=== PATIENT | female | born 1950 | race Caucasian/White ===

== ENCOUNTER 2018-06-01 06:53 | Day surgery (SDC) | payer OTHER, MEDICARE ==
--- NOTE | 2018-05-31 13:50 | RAD REPORT ---
EXAM DESCRIPTION: Dev Vincent (2 Views)05/31/2018 1:38 pm CLINICAL HISTORY: Coronary artery disease/preop exam COMPARISON: 2016 FINDINGS: The lungs appear clear of acute infiltrate. The heart is normal size IMPRESSION: No acute abnormalities displayed
[2018-05-31 13:53] LABS: Absolute Lymphocytes (CBC) 2.1 K/uL (0.7-4.9); Absolute Monocytes 0.3 K/uL (0.1-1.3); Absolute Neutrophil 3.5 K/uL (1.8-8.0); Basophils % 0.6 % (0-1.3); Eosinophils % 2.1 % (0-4.4); Hematocrit 43.3 % (36.0-45.0); Lymphocytes % 34.8 % (15.3-44.8); MPV 8.6 fL (7.6-11.3); Monocytes % 4.9 % (3.3-12.3); RBC Red Blood Cell Count 4.92 M/uL (3.86-4.86)
[2018-05-31 13:57] LABS: Protime INR 1.06
[2018-05-31 14:01] LABS: Potassium 4.1 mmol/L (3.5-5.1)
[2018-06-01] MEDS ORDERED: LIDOCAINE 1% MPF 5 ML VIAL ONE (07:11)
[2018-06-01] MEDS ORDERED: HEPA 1000U/500MLS 2,000 UNIT/1,000 ML BAG IV ONE (07:11)
[2018-06-01] MEDS ORDERED: NA CHLORIDE 0.9% 500 ML ONE (07:21)
[2018-06-01] MEDS ORDERED: MIDAZOLAM HCL 2 MG/2 ML INJ ONE ×2 (07:48→08:20)
[2018-06-01] MEDS ORDERED: FENTANYL CITR 100 MCG/2 ML ONE (07:49)
[2018-06-01] MEDS ORDERED: HEPARIN 5000 UNIT/ML 1 ML VIAL ONE (08:25)
[2018-06-01] MEDS ORDERED: NICARDIPINE HCL 25 MG/10 ML IV ONE (08:25)
[2018-06-01] MEDS ORDERED: NITROGLYCERIN 100 MCG/ML SYR (for cath lab use only) IV ONE (08:25)
[2018-06-01] MEDS ORDERED: NITROGLYCERIN/D5W 25 MG/250 ML BTL IV ONE (08:25)
[2018-06-01] MEDS ORDERED: HYDRALAZINE HCL 20 MG/ML VIAL ONE (08:43)
[2018-06-01 09:57] VITALS: O2SAT 97
[2018-06-01 11:37] VITALS: TEMP 97
[2018-06-01 11:39] VITALS: BP 114/63
--- NOTE | 2018-06-01 19:36 | OP ---
Surgeon: Aristeo Guevara MD Additional Attending Physician: Oniel Ritter M.D. Procedures: Left heart catheterization, coronary left ventricular angiography. Findings: The patient has mild CAD. No stenosis more than 40%. The RCA stent placed several years ago is widely patent. There is no evidence of any lesion that would cause any ischemia. Her left ve ntricular ejection fraction is normal. Left ventricular end-diastolic pressure was normal at 5, but the systolic blood pressure is elevated at 185, so she has systolic hypertension, and in the final an alysis, she is low risk for going through general anesthesia and hip joint replacement surgery withou t any further cardiac testing. Procedure In Detail: The patient was brought to the cardiac supervisor labor gang in a fasting state, sedated wit h Versed and fentanyl. Prepared and draped in usual sterile fashion. Right radial approach was used . Tissues around the right radial artery were anesthetized using 1% lidocaine. The artery was enter ed using a 21-gauge needle, cannulated with a 0.021 inch diameter guidewire. This was then used to p lace a 6-Occitan Terumo radial sheath. The sheath was flushed, radial cocktail was given consisting o f nicardipine, heparin, nitroglycerin. We guided a TIG catheter into the ascending aorta using a Gli dewire and fluoroscopy. The TIG catheter was used to angiogram right coronary, left coronary, and le ft ventricle. At the end of the procedure, the catheter was straightened out using a J-wire and the catheter and wire were withdrawn. Sheath was flushed, removed, and the arteriotomy was closed using TR band. Complications From The Procedure: None. Estimated Blood Loss: 5 cc. Maintainability Engineer: Jose Andrew. HARMEET/LESLIE Voice ID: [id number] Report ID: [id number]
== END 2018-06-01 11:25 | disposition home health service (06) ==
LOC: CCL 06:53
PROVIDERS: ATTEND Internal Medicine
DX: R94.39 Abnormal result of other cardiovascular function study (principal); I25.10 Atherosclerotic heart disease of native coronary artery without angina pectoris; I10 Essential (primary) hypertension; E78.2 Mixed hyperlipidemia; E11.9 Type 2 diabetes mellitus without complications; Z95.5 Presence of coronary angioplasty implant and graft; Z91.048 Other nonmedicinal substance allergy status
CPT/HCPCS: 36415; 71046; 80048; 82962 ×2; 85025; 85610; 85730; 93458; C1893; J0360; J1644; J2250 ×2; J3010

== ENCOUNTER 2019-11-18 16:47 | Emergency (ER) | payer OTHER, MEDICARE ==
--- OUTSIDE RECORDS SUMMARY | 2019-11-18 16:50 | XMS REPORT | Continuity of Care Document ---
:[address] [facility] t Address [address] [place] [address] Care Team Providers Name Role Phone Unavailable Unavailable Unavailable Payers Payer Name Policy Type Policy Number Effective Date Expiration Date S ource Problems This patient has no known problems. Allergies, Adverse Reactions, Alerts Allergy Allergy Status Severity Reaction(s) Onset Inactive Treating Comm ents Source Name Type Date Date Clinician No Known DA Active U [facility] 06-13 [place] [facility] No Known DA Active U [facility] 09-09 [facility] [place] Medications This patient has no known medications. Procedures This patient has no known procedures. Results Test Description Test Time Test Comments Results Result Comments Source GLUBED 2018-06-15 11:44:00 Test Item Value Reference Range Interpretation Comme nts GLUBED (test code = GLUBED) 136 mg/dL 60-125 H - XR PELVIS 1/2 [id number] 10:02:00 Patient Name: REVA ROMAN Unit No: [id number] EXAMS: CPT CODE: [id number] XR PELVIS 1/2 VIEWS 10060 AP VIEW OF THE PELVIS. COMMENT: In progress total left hip arthroplasty. AP view the pelvis COMMENT: COMPARISON: No prior exams available. Completed total left hip arthroplasty. Prosthesis appears to be in good position. at 1002 Reported and signed by: Ting Rodríguez MD CC: Oniel Ritter MD; Pablo Tang MD Technologist: MUSA GARCIA (RT.R) Transcribed D/ (1002) [email or web address] [facility] NAME: REVA ROMAN [address] [place] [address] PHYS: Pablo Cavanaugh : 1950 AGE: 68 SEX: F [place], [place] [address] LOC: Y.301 A PHONE #: [phone] EXAM DATE: 06/14/2018 STATUS: DIS IN FAX #: [phone] RAD #: D/C DT 06/15/2018 PAGE 1 Signed Report Patient Name: REVA ROMAN EFREN Unit No: [id number] EXAMS: CPT CODE: [id number] XR PELVIS 1/2 VIEWS 55348 <Continued> Orig Print D/T: S: 06/17/2018 (1046) [facility] NAME: REVA ROMAN [address] [place] [address] PHYS: MATJAJA.Flora - Pablo Tang : 1950 AGE: 68 SEX: F [place], [place] [address] LOC: Y.301 A PHONE #: [phone] EXAM DATE: STATUS: DIS IN FAX #: [phone] RAD #: D/C DT 06/15/2018 PAGE 2 Signed Report- XR PELVIS 1/2 [id number] 10:02:00 Patient Name: REVA ROMAN EFREN Unit No: [id number] EXAMS: CPT CODE: [id number] XR PELVIS 1/2 VIEWS 16065 AP VIEW OF THE PELVIS. COMMENT: In progress total left hip arthroplasty. AP view the pelvis COMMENT: COMPARISON: No prior exams available. Completed total left hip arthroplasty. Prosthesis appears to be in good position. at 1002 Reported and signed by: Ting Rodríguez MD CC: Oniel Ritter MD; Pablo Tang MD Technologist: DOT KRISHNAMURTHY RT(R) Transcribed D/ (1002) [email or web address] [facility] NAME: REVA ROMAN [address] [facility] PHYS: Robyn Cavanaughilios Rachel : 1950 AGE: 68 SEX: F [place] [address] LOC: Y.301 A PHONE #: [phone] EXAM DATE: 06/14/2018 STATUS: DIS IN FAX #: [phone] RAD #: D/C DT 06/15/2018 PAGE 1 Signed Report Patient Name: REVA ROMAN EFREN Unit No: [id number] EXAMS: CPT CODE: [id number] XR PELVIS 1/2 VIEWS 84080 <Continued> Orig Print D/T: S: 06/17/2018 (1046) [facility] NAME: REVA ROMAN [address] [place] [address] PHYS: COSMOKeyla Rodriguez Pablo Tang Rachel : 1950 AGE: 68 SEX: F [place] [address] LOC: Y.301 A PHONE #: [phone] EXAM DATE: 06/14/2018 STATUS: DIS IN FAX #: [phone] RAD #: D/C DT 06/15/2018 PAGE 2 Signed ReportHGB [id number] 06:01:00 Test Item Value Reference Range Interpretation Comments HEMOGLOBIN (test code = HGB) 10.6 g/dL 12-16 L HEMATOCRIT (test code = HCT) 32.7 % 37-47 L [id number] 05:33:00 Test Item Value Reference Range Interpretation Comments GLUBED (test code = GLUBED) 155 mg/dL 60-125 H [id number] 05:33:00 Test Item Value Reference Range Interpretation Comments GLUBED (test code = GLUBED) 140 mg/dL 60-125 H [id number] 20:37:00 Test Item Value Reference Range Interpretation Comments GLUBED (test code = GLUBED) 243 mg/dL 60-125 H [id number] 16:33:00 Test Item Value Reference Range Interpretation Comments GLUBED (test code = GLUBED) 232 mg/dL 60-125 H [id number] 09:40:00 Test Item Value Reference Range Interpretation Comments GLUBED (test code = GLUBED) 112 mg/dL 60-125 N AB HIV 1 20:55:00 Test Item Value Reference Range Interpretation Comments AB HIV 1 2 (test NONREACTIVE NONREACTIVE Done by S vuTrovdelbert Centaur code = [id number]) 4th Gen HIV Ag/Ab Combo Screen AB HIV 20:55:00 Test Item Value Reference Range Interpretation Comments AB HIV 1 (test code NONREACTIVE NONREACTIVE DONE AT: [facility] = HIV1AB) [place] [id number] [facility], [place] [address] by Verdezyne aur 4th Gen HIV Ag/Ab C ombo Screen URINALYSIS [id number] 19:06:00 Test Item Value Reference Range Interpretation Comments UA COLOR (test code = COLU) YELLOW YELLOW UA APPEARANCE (test code = APPU) CLEAR CLEAR UA GLUCOSE DIPSTICK (test code = NEGATIVE NEGATIVE DGLUU) UA BILIRUBIN DIPSTICK (test code = NEG NEGATIVE BILU) UA KETONE DIPSTICK (test code = NEG mg/dL NEG KETU) UA SPECIFIC GRAVITY (test code = 1.005 1.003-1.035 SGU) UA BLOOD DIPSTICK (test code = ROSAMARIA) NEG NEGATIVE UA PH DIPSTICK (test code = YEMI) 6.0 >6.5 UA PROTEIN DIPSTICK (test code = NEG mg/dL NEG PROU) UA UROBILINIOGEN DIPSTICK (test 0.2 mg/dL NORM code = URO) UA NITRITE DIPSTICK (test code = NEG NEG NAHOMY) UA LEUKOCYTE ESTERASE DIPSTICK NEG NEGATIVE (test code = LEUU) UA WBC (test code = WBCU) 0-2 /HPF 0-2 UA RBC (test code = RBCU) 0-2 /HPF 0-2 UA EPITHELIAL CELLS (test code = FEW /HPF 0-2 EPIU) UA BACTERIA (test code = BACU) FEW /HPF NONE PROTHROMBIN [id number] 18:11:00 Test Item Value Reference Range Interpretation Comments PROTHROMBIN TIME 12.3 secs 10.1-12.5 N PATIENT (test code = PTP) INTERNATIONAL NORMAL 1.09 <2.0 RECOMME NDED THERAPEUTIC RATIO (test code = RANGE FOR ORAL INR) ANTICOAGULANTTR EATMENT: CONDI TION INRProphylaxis of venous thrombos is in 2.0 - 3.0 high-risk medic al or surgical patientsTreatme nt of venous thrombos is 2.0 - 3.0Prevention o f embolism 2.0 - 3.0Prevention o f recurrent embol ism, or 3.0 - 4. 5 patients with mechanical pros thetic intravascular v cain IS PATIENT ON ANTICOAGULANTS ? YLIST ANTICOAGULANT/ANTI PLT MEDICATION : Plavix (Anti-PLT)Has Lab been notified if Patient is on Heparin Drip? NOIf Yes, order CBC, OCCULT BLOOD, PT every other day NTHROMBOPLASTIN TIME [id number] 18:11:00 Test Item Value Reference Range Interpretation Comments PTT ACTIVATED (test code = APTT) 31.3 secs 24.9-37.0 N IS PATIENT ON ANTICOAGULANTS ? YLIST ANTICOAGULANT/ANTI PLT MEDICATION : Plavix (Anti-PLT)Has Lab been notified if Patient is on Heparin Drip? NOIf Yes, order CBC, OCCULT BLOOD, PT every other day NCOMPREHENSIVE METABOLIC [id number] 17:54:00 Test Item Value Reference Range Interpretation Comments SODIUM (test code = 144 mmol/L 136-145 N NA) POTASSIUM (test code = 3.9 mmol/L 3.5-5.1 N K) CHLORIDE (test code = 102.0 mmol/L 98-107 N CL) CARBON DIOXIDE (test 25.6 mmol/L 21-32 N code = CO2) GLUCOSE (test code = 104 mg/dL 70-110 N GLU) BLOOD UREA NITROGEN 14 mg/dL 7-18 N (test code = BUN) GLOMERULAR FILTRATION 88.5 >60 Unit o f measure: RATE (test code = GFR) mL/mi n/1.73 [id number] Range:Healthy Adults >90 mL/min/1.73 m2 For Chronic Kidney Disease: St age II Mild Decrease in GFR 60-90 St age III Moderate Decrease in GFR 30-59 Stage IV Severe Decre ase in GFR 15- 29 Stage V Kidney Failure <15 CREATININE (test code 0.66 mg/dL 0.55-1.30 N = CREAT) TOTAL PROTEIN (test 7.3 g/dL 6.4-8.2 N code = PROT) ALBUMIN (test code = 4.4 g/dL 3.4-5.0 N ALB) GLOBULIN (test code = 2.9 g/dL 2.2-4.2 N GLOB) ALBUMIN/GLOBULIN RATIO 1.5 0.7-2.0 N (test code = A/G) CALCIUM (test code = 9.3 mg/dL 8.2-10.1 N CA) BILIRUBIN TOTAL (test 0.34 mg/dL 0.2-1.00 N code = BILT) SGOT/AST (test code = 18.0 U/L 15-37 N AST) SGPT/ALT (test code = 26.0 U/L 12-78 N Please note new ALT) normal range. ALKALINE PHOSPHATASE 63 U/L 46-116 N TOTAL (test code = ALKP) CBC W/AUTO [id number] 17:28:00 Test Item Value Reference Range Interpretation Comments WHITE BLOOD CELL (test code = WBC) 7.1 K/mm3 5.8-11.0 N RED BLOOD CELL (test code = RBC) 4.71 M/mm3 4.2-5.4 N HEMOGLOBIN (test code = HGB) 13.7 g/dL 12-16 N HEMATOCRIT (test code = HCT) 42.2 % 37-47 N MEAN CELL VOLUME (test code = MCV) 90 fL 80-98 N MEAN CELL HGB (test code = MCH) 29.1 pg 27-34 N MEAN CELL HGB CONCENTRATION (test 32.5 g/dL 30.8-34.1 N code = MCHC) RED CELL DISTRIBUTION WIDTH (test 12.7 % 11-16 N code = RDW) PLT (test code = PLT) 247 K/mm3 130-400 N MEAN PLATELET VOLUME (test code = 10.1 fL 8.9-12.1 N MPV) NEUTROPHIL % (test code = NT%) 63.3 % 45-70 N LYMPHOCYTE % (test code = LY%) 30.2 % 20-40 N MONOCYTE % (test code = MO%) 4.3 % 3-10 N EOSINOPHIL % (test code = EO%) 1.4 % 1-5 N BASOPHIL % (test code = BA%) 0.4 % 0.0-1.1 N NEUTROPHIL # (test code = NT#) 4.51 K/mm3 2.00-7.50 N LYMPHOCYTE # (test code = LY#) 2.15 K/mm3 1.50-4.00 N MONOCYTE # (test code = MO#) 0.31 K/mm3 0.2-0.8 N EOSINOPHIL # (test code = EO#) 0.10 K/mm3 0.04-0.4 N BASOPHIL # (test code = BA#) 0.03 K/mm3 0.02-0.10 N MANUAL DIFF REQUIRED (test code = NO MANUAL DIFF MDIFF) NUCLEATED RED BLOOD CELL (test 0 % 0-0 N code = NRBC)
[2019-11-18] MEDS ORDERED: HYDROCODONE/APAP 10/325 TAB ONE (17:20)
--- NOTE | 2019-11-18 18:44 | RAD REPORT ---
EXAM DESCRIPTION: RAD - Ankle Right 3 View - 11/18/2019 6:08 pm CLINICAL HISTORY: PAIN COMPARISON: No comparisons FINDINGS: Large posterior and plantar calcaneal spurs. No acute fracture or dislocation.
--- NOTE | 2019-11-18 18:48 | RAD REPORT ---
EXAM DESCRIPTION: RAD - Foot Right 3 View - 11/18/2019 6:08 pm CLINICAL HISTORY: PAIN COMPARISON: No comparisons FINDINGS: Moderate soft tissue swelling is seen about the dorsum of the forefoot. No acute fracture or dislocation. Large calcaneal spurs.
--- NOTE | 2019-11-18 18:49 | RAD REPORT ---
EXAM DESCRIPTION: RAD - Foot Left 3 View - 11/18/2019 6:08 pm CLINICAL HISTORY: PAIN COMPARISON: No comparisons FINDINGS: Soft tissue swelling is seen about the foot. No acute fracture or dislocation. Small to mo derate calcaneal spurs.
--- NOTE | 2019-11-18 18:51 | RAD REPORT ---
EXAM DESCRIPTION: RAD - Ankle Left 3 View - 11/18/2019 6:08 pm CLINICAL HISTORY: PAIN COMPARISON: Foot Left 3 View dated 11/18/2019 FINDINGS: Moderate soft tissue swelling is seen about the medial ankle. No acute fracture seen. Smal l to moderate calcaneal spurs.
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
[2019-11-18 20:31] VITALS: BP 162/72; O2SAT 98
== END 2019-11-18 20:24 | disposition home or self-care (01) ==
LOC: ER 16:47
DX: S90.32XA Contusion of left foot, initial encounter (principal); S90.31XA Contusion of right foot, initial encounter; S90.512A Abrasion, left ankle, initial encounter; W23.1XXA Caught, crushed, jammed, or pinched between stationary objects, initial encounter; Y93.89 Activity, other specified; Y92.9 Unspecified place or not applicable
CPT/HCPCS: 99283

== ENCOUNTER 2022-05-04 18:30 | Emergency (ER) | payer OTHER, MEDICARE ==
--- OUTSIDE RECORDS SUMMARY | 2022-05-04 18:34 | XMS REPORT | Continuity of Care Document ---
:1950 Author Organization [facility] t Address [address] [place] [address] Care Team Providers Name Role Phone Asked, No Pcp Primary Care Physician Unavailable Rickey GRANADOS, Sharona Attending Clinician Nilson PERDUE-SENIOR BENEFITS MANAGERRebekah Attending Clinician Payers Payer Name Policy Type Policy Number Effective Date Expiration Date S ource Problems This patient has no known problems. Allergies, Adverse Reactions, Alerts Allergy Allergy Status Severity Reaction(s) Onset Inactive Treating Comm ents Source Name Type Date Date Clinician No Known DA Active U [facility] 06-13 [place] [facility] No Known DA Active U 2001-0 [facility] 09-09 [facility] [place] Family History Family Member Diagnosis Comments Start Date Stop Date Source Natural mother [facility] [place] Social History Social Habit Start Date Stop Date Quantity Comments Source Tobacco use and 2021-12-16 2021-12-16 Smokeless tobacco [facility]user Hospital Sex Assigned At [birth year] [facility] Smoking Status Start Date Stop Date Source [facility] smoked tobacco [facility] Medications Ordered Filled Start Stop Current Ordering Indication Dosage Frequency Signature Comments Components Source Medication Medication Date Date Medication? Clinician (SIG) Name Name aspirin 2021-05 Yes 81mg QD Take 81 mg Meth prakash (ECOTRIN) 0-[address] 81 MG 13:30: daily. Hospita enteric 28 l coated tablet clopidogreL Yes Method i (PLAVIX) 75 8-01 st mg tablet 00:00: Hospita 00 l spironolact Yes 50mg QD Take 50 mg [facility] one 7-[address] (ALDACTONE) 00:00: daily. [facility] [place] 50 MG 00 l tablet metFORMIN Yes 1000mg QD Take 1,000 [facility] XR 5-[address] (GLUCOPHAGE 00:00: mouth Hospi ta -XR) 500 mg 00 every l 24 hr morning. tablet amitriptyli Yes 25mg QD Take 25 mg [facility] ne (ELAVIL) 5-[address] 25 MG 00:00: nightly as Hospit a tablet 00 needed. l metoprolol Yes [facility] tartrate 5-17 st (LOPRESSOR) 00:00: Hospit a 25 mg 00 l tablet Vital Signs Vital Name Observation Time Observation Value Comments Source Systolic blood 2021-12-16 18:02:00 135 mm[Hg] [facility] pressure Diastolic blood 2021-12-16 18:02:00 83 [facility]Hg[facility] pressure Heart rate 2021-12-16 18:02:00 76 /min [facility] Body height 2021-12-16 18:02:00 165.1 cm [facility] Body weight 2021-12-16 18:02:00 83.008 kg [facility] BMI 2021-12-16 18:02:00 30.45 kg/m2 [facility] Procedures This patient has no known procedures. Plan of Care Planned Activity Planned Date Details Comments Source Future Scheduled 2022-04-30 Hepatitis C screening [facility] Test 08:23:50 (procedure) [code = 531060597] Future Scheduled 2022-04-30 COLONOSCOPY SCREENING [facility] Test 08:23:50 [code = COLONOSCOPY SCREENING] Future Scheduled 2022-04-30 SHINGLES VACCINES (1 Met [facility] [place] [facility] Test 08:23:50 of 2) [code = SHINGLES VACCINES (1 of 2)] Future Scheduled 2022-04-30 BREAST CANCER [facility] Test 08:23:50 SCREENING [code = BREAST CANCER SCREENING] Future Scheduled 2022-04-30 65[facility] [facility] Test 08:23:50 VACCINE (1 - PCV) [code = 65+ PNEUMOCOCCAL VACCINE (1 - PCV)] Future Scheduled 2022-04-30 COVID-19 VACCINE ([facility] - [facility] Test 08:23:50 Booster for Moderna series) [code = COVID-19 VACCINE (3 - Booster for Moderna series)] Future Scheduled 2022-04-30 INFLUENZA VACCINE [facility] Test 08:23:50 [code = INFLUENZA VACCINE] Encounters Start End Encounter Admission Attending Care Care Encounter Source Date/Time Date/Time Type Type Clinicians Facility Department ID 2022-03-04 2022-03-04 Office RickeySharona walton 1.2.840.1 [id number] [facility] 13:00:00 13:47:[address] 3.430.2.7 Hospit a .3.908979 l .8 2022-03-04 2022-03-04 Speech [employer], 1.2.840.1 [id number] [facility] 11:45:00 13:04:44 Language Rebekah 64791.1.[address] Eval 3.430.2.7 Hospit a .3.133439 l .8 2022-03-04 2022-03-04 Travel 1.2.840.1 1.2.860.088 [id number] [facility] 00:00:00 00:00:[address] 3.430.2.7 0.2.7.3.698 Ho spita .3.266063 084.8 l .8 2022-03-04 2022-03-04 Outpatient [facility] [id number] 00:00:00 00:00:[address] 2022-03-04 2022-03-04 Outpatient SHARONA LANG [facility] [id number] 00:00:00 00:00:[address] 2022-02-04 2022-02-04 [facility] [employer], 1.2.840.1 [id number] [facility] 13:00:00 16:49:32 [address] Rebekah 52958.1.[address] 3.430.2.7 Hospit a .3.326605 l .8 2022-02-04 2022-02-04 Outpatient [facility] [id number] 00:00:00 00:00:[address] 2022-01-12 2022-01-12 [employer] [employer], 1.2.840.1 [id number] Method[facility] 14:00:00 15:13:11 [address] Rebekah [address]385.1.[address] 3.430.2.7 Hospit a .3.525286 l .8 2022-01-12 2022-01-12 Outpatient [facility] [id number] 00:00:00 00:00:[address] 2021-12-29 2021-12-29 [facility] [employer], 1.2.840.1 [id number] Method[facility] 11:00:00 16:50:43 [address] Rebekah [address]1934.1.[address] 3.430.2.7 Hospit a .3.311644 l .8 2021-12-29 2021-12-29 Outpatient [facility] [id number] 00:00:00 00:00:[address] 2021-12-16 2021-12-16 [employer], 1.2.840.1 [id number] [id number] Methodi 13:00:00 14:21:06 Language Rebekah 53184.1.[address] Eval 3.430.2.7 Hospit a .3.262831 l .8 2021-12-16 2021-12-16 Office Sharona Lang 1.2.840.1 [id number] [facility] 13:30:00 13:58:[address] 3.430.2.7 Hospit a .3.830990 l .8 2021-12-16 2021-12-16 Outpatient [facility] [id number] 00:00:00 00:00:[address] 2021-12-16 2021-12-16 Outpatient SHARONA LANG [facility] [id number] 00:00:00 00:00:[address] 2021-12-16 2021-12-16 Orders Sharona Lang 1.2.840.1 [id number] [facility] 00:00:00 00:00:[address] 3.430.2.7 Hospit a .3.568939 l .8 2021-12-16 2021-12-16 Travel 1.2.840.1 1.2.802.751 2038 [id number] [facility] 00:00:00 00:00:[address] 3.430.2.7 0.2.7.3.698 Ho spita .3.754592 084.8 l .8 Results Test Description Test Time Test Comments Results Result Comments Source GLUBED 2018-06-15 11:44:00 Test Item Value Reference Range Interpretation Comme nts GLUBED (test code = GLUBED) 136 mg/dL 60-125 H - XR PELVIS 1/2 [id number] 10:02:00 Patient Name: REVA RAPHAEL Unit No: [id number] EXAMS: CPT CODE: [id number] XR PELVIS 1/2 VIEWS 19390 AP VIEW OF THE PELVIS. COMMENT: In progress total left hip arthroplasty. AP view the pelvis COMMENT: COMPARISON: No prior exams available. Completed total left hip arthroplasty. Prosthesis appears to be in good position. at 1002 Reported and signed by: Ting Rodríguez MD CC: Oniel Ritter MD; Pablo Tang MD Technologist: MUSA GARCIA (RT.R) Transcribed D/ (1002) t.SDR.GVG [facility] NAME: REVA RAPHAEL EFREN [address] [facility] PHYS: MATVA.01 - Pablo Tang : 1950 AGE: 68 SEX: F [place], [place] [address] LOC: Y.301 A PHONE #: [phone] EXAM DATE: 06/14/2018 STATUS: D IS IN FAX #: [phone] RAD #: D/C DT 06/15/2018 PAGE 1 Signed Report Patient Name: REVA RAPHAEL EFREN Unit No: [id number] EXAMS: CPT CODE: [id number] XR PELVIS 1/2 VIEWS 19873 (Continued) Orig Print D/T: S: 06/17/2018 (1046) [facility] NAME: REVA RAPHAEL [address] [facility] PHYS: MATVA. - Pablo Tang : 1950 AGE: 68 SEX: F [place] [address] LOC: Y.301 A PHONE #: [phone] EXAM DATE: 06/14/2018 STATUS: DIS IN FAX #: [phone] RAD #: D/C DT 06/15/2018 PAGE 2 Signed Report- XR PELVIS 1/2 [id number] 10:02:00 Patient Name: REVA RAPHAEL EFREN Unit No: [id number] EXAMS: CPT CODE: [id number] XR PELVIS 1/2 VIEWS 98989 AP VIEW OF THE PELVIS. COMMENT: In progress total left hip arthroplasty. AP view the pelvis COMMENT: COMPARISON: No prior exams available. Completed total left hip arthroplasty. Prosthesis appearsto be in good position. at 1002 Reported and signed by: Ting Rodríguez MD CC: Oniel Ritter MD; Pablo Tang MD Technologist: DOT KRISHNAMURTHY RT(R) Transcribed D/ (1002) CatherineG [facility] NAME: REVA RAPHAEL [address] [facility] PHYS: MATVA.Flora - Pablo Tang : 1950 AGE: 68 SEX: F [place], [place] [address] LOC: Y.301 A PHONE #: [phone] EXAM DATE: 06/14/2018 STATUS: DIS IN FAX #: [phone] RAD #: D/C DT 06/15/2018 PAGE 1 Signed Report Patient Name: REVA RAPHAEL Unit No: [id number] EXAMS: CPT CODE: [id number] XR PELVIS 1/2 VIEWS 50887 (Continued) Orig Print D/T: S: 06/17/2018 (1046) [facility] NAME: REVA RAPHAEL [address] [facility] [address] PHYS: MATVA.01 - Pablo Tang : 1950 AGE: 68 SEX: F [place], [place] [address] LOC: Y.301 A PHONE #: [phone] EXAM DATE: 06/14/2018 STATUS: DIS IN FAX #: [phone] RAD #: D/C DT 06/15/2018 PAGE 2 Signed ReportHGB HCT 2018-06-15 06:01:00 Test Item Value Reference Range Interpretation Comments HEMOGLOBIN (test code = HGB) 10.6 g/dL 12-16 L HEMATOCRIT (test code = HCT) 32.7 % 37-47 L [id number] 05:33:00 Test Item Value Reference Range Interpretation Comments GLUBED (test code = GLUBED) 155 mg/dL 60-125 H [id number] 05:33:00 Test Item Value Reference Range Interpretation Comments GLUBED (test code = GLUBED) 140 mg/dL 60-125 H [id number] 20:37:00 Test Item Value Reference Range Interpretation Comments GLUBED (test code = GLUBED) 243 mg/dL 60-125 H [id number] 16:33:00 Test Item Value Reference Range Interpretation Comments GLUBED (test code = GLUBED) 232 mg/dL 60-125 H [id number] 09:40:00 Test Item Value Reference Range Interpretation Comments GLUBED (test code = GLUBED) 112 mg/dL 60-125 N AB [id number] 20:55:00 Test Item Value Reference Range Interpretation Comments AB HIV 1 (test code NONREACTIVE NONREACTIVE DONE AT: [facility] = HIV1AB) [facility] [address] [place], [place] [address] by [employer] 4th Gen HIV Ag/Ab C ombo Screen AB HIV 1 20:55:00 Test Item Value Reference Range Interpretation Comments AB HIV 1 2 (test NONREACTIVE NONREACTIVE Done by [employer] code = [id number]) 4th Gen HIV Ag/Ab Combo Screen URINALYSIS [id number] 19:06:00 Test Item Value Reference Range Interpretation [...] code = BACU) FEW /HPF NONE PROTHROMBIN [id number] 18:11:00 Test Item Value Reference Range Interpretation Comments PROTHROMBIN TIME 12.3 secs 10.1-12.5 N PATIENT (test code = PTP) INTERNATIONAL NORMAL 1.09 <2.0 RECOMME NDED THERAPEUTIC RATIO (test code = RANGE FOR ORAL INR) ANTICOAGULANTTR EATMENT: CONDITION INRPr ophylaxis of venous throm bosis in 2.0 - 3.0 high- risk medical or surg ical patientsTreatme nt of venous thrombos is 2.0 - 3.0Prevention o f embolism 2.0 - 3.0Prevention o f recurrent embol ism, or 3.0 - 4.5 patie nts with mechanical pros thetic intravascular v cain IS PATIENT ON ANTICOAGULANTS ? YLIST ANTICOAGULANT/ANTI PLT MEDICATION : Plavix (Anti-PLT)Has Lab been notified if Patient is on Heparin Drip? NOIf Yes, order CBC, OCCULT BLOOD, PT every other day NTHROMBOPLASTIN TIME [id number] 18:11:00 Test Item Value Reference Range Interpretation Comments PTT ACTIVATED (test code = APTT) 31.3 secs 24.9-37.0 N IS PATIENT ON ANTICOAGULANTS ? YLIST ANTICOAGULANT/ANTI PLT MEDICATION : Plavix (Anti-PLT)Has Lab been notified if Patient is on Heparin Drip? NOIf Yes, order CBC, OCCULT BLOOD, PT every other day NCOMPREHENSIVE METABOLIC [id number] 17:54:00 Test Item Value Reference Range Interpretation [...] RATE (test code = GFR) mL/mi n/1.73 [id number] Range:Healthy Adults >90 mL/min/1.73 m2 For Chronic Kidney Disease: Stage II Mild Decrease i n GFR 60-90 Stage III Moderate Decrea se in GFR 30-59 St age IV Severe Decre ase in GFR 15-29 St age V Kidney Failur e <15 CREATININE (test code 0.66 mg/dL 0.55-1.30 [...] TOTAL (test code = ALKP) CBC W/AUTO [id number] 17:28:00 Test Item Value Reference Range Interpretation [...]
[2022-05-04 19:57] LABS: Absolute Lymphocytes (CBC) 0.9 K/uL (0.7-4.9); Hematocrit 42.3 % (36.0-45.0); Lymphocytes % 17.2 % (15.3-44.8); MCV 86.2 fL (80-100); MPV 7.7 fL (7.6-11.3); RBC Red Blood Cell Count 4.91 M/uL (3.86-4.86)
[2022-05-04 20:07] LABS: Protime INR 1.2
[2022-05-04 20:17] LABS: ALT/SGPT 35 U/L (13-56); AST/SGOT 29 U/L (15-37); Albumin 3.6 g/dL (3.4-5.0); Alkaline Phosphatase 60 U/L (45-117); BUN Blood Urea Nitrogen 15 mg/dL (7-18); Bicarbonate 25 mmol/L (21-32); Bilirubin Total 0.3 mg/dL (0.2-1.0); Creatine Phosphokinase 247 U/L (26-192); Glomerular Filtration Rate 71 ml/min (=/>90); Glucose Level 176 mg/dL (74-106); Magnesium 1.8 mg/dL (1.6-2.4); Potassium 3.6 mmol/L (3.5-5.1); Protein, Total 7.3 g/dL (6.4-8.2); Sodium Level 136 mmol/L (136-145); Troponin High Sensitivity 9.7 pg/mL (<58.9)
--- NOTE | 2022-05-04 20:20 | RAD REPORT ---
EXAM DESCRIPTION: CT - Head Brain Wo Cont - 05/04/2022 8:08 pm CLINICAL HISTORY: Head injury status post fall COMPARISON: None TECHNIQUE: Computed axial tomography of the head was obtained. IV contrast was not requested. All CT scans are performed using dose optimization technique as appropriate and may include automated exposure control or mA/KV adjustment according to patient size. FINDINGS: An intracranial bleed is not seen . The ventricles are normal in caliber. No extra-axial fluid collection is noted. No significant hypodensity within the brain. IMPRESSION: No acute intracranial abnormality is seen. If patient's symptoms persist MRI of the bra in would be recommended. Refer to the CT face report for facial findings
[2022-05-04 20:22] LABS: Bilirubin Direct < 0.1 mg/dL (0-0.2)
--- NOTE | 2022-05-04 20:23 | RAD REPORT ---
EXAM DESCRIPTION: CT - Facial Bones W/ Mpr - 05/04/2022 8:08 pm CLINICAL HISTORY: Facial injury status post fall COMPARISON: none TECHNIQUE: Computed axial tomography of the face was obtained. Coronal and sagittal reconstruction w as performed. All CT scans are performed using dose optimization technique as appropriate and may include automated exposure control or mA/KV adjustment according to patient size. FINDINGS: Right preseptal/supraorbital hematoma. A fracture is not seen. A TMJ dislocation is not noted. The globes are intact. Fluid within the sinuses is not seen. IMPRESSION: Negative for a facial fracture.
--- NOTE | 2022-05-04 20:40 | EDPHYS ---
Physician Documentation [facility] Name: Zari Raphael Age: 72 yrs Sex: Female : 1950 Arrival Date: 05/04/2022 Time: 18:34 Bed 20 Private MD: ED Physician Pramod Olivia HPI: 05/04 19:17 This 72 yrs old Female presents to ER via Ambulatory with complaints of Fall Injury, kb Facial Injury. 19:17 Details of fall: The patient fell from an upright position, while walking. Onset: The kb symptoms/episode began/occurred last night. Associated injuries: The patient sustained injury to the head, contusion, hematoma, pain, swelling. Severity of symptoms: At their worst the symptoms were moderate, in the emergency department the symptoms are unchanged. The patient has not experienced similar symptoms in the past. The patient has not recently seen a physician. Pt reports she fell while walking her dog last night. Denies loc. Went to Dr Ritter's office and was sent here for CT. Historical: - Allergies: 18:56 No Known Allergies; hb - Immunization history:: Client reports receiving the 2nd dose of the Covid vaccine, Flu vaccine is up to date. - Social history:: Smoking status: Patient denies any tobacco usage or history of. Patient/guardian denies using. ROS: 19:15 Constitutional: Negative for fever, chills, and weight loss. kb 19:15 Skin: Positive for abrasion(s), ecchymosis, hematoma, of the right side of forehead and right eye. 19:15 All other systems are negative. Exam: 19:16 Constitutional: This is a well developed, well nourished patient who is awake, alert, kb and in no acute distress. ENT: Moist Mucous membranes Cardiovascular: Regular rate and rhythm with a normal S1 and S2. No gallops, murmurs, or rubs. No pulse deficits. Respiratory: Respirations even and unlabored. No increased work of breathing. Talking in full sentences Abdomen/GI: Soft, non-tender. No distention MS/ Extremity: Pulses equal, no cyanosis. Neurovascular intact. Full, normal range of motion. Neuro: Awake and alert, GCS 15, oriented to person, place, time, and situation. Moves all extremities. Normal gait. Psych: Awake, alert, with orientation to person, place and time. Behavior, mood, and affect are within normal limits. 19:16 Head/face: Noted is no obvious of injury or deformity except abrasion(s), that are mild, of the right side of forehead, ecchymosis, that is moderate, of the right side of forehead and right eye, swelling, that is moderate, of the right side of forehead and right eye. 19:16 Eyes: Periorbital structures: swelling, that is moderate, on the right upper eyelid and right lower eyelid, ecchymosis, Pupils: equal, round, and reactive to light and accomodation, Extraocular movements: intact throughout, Conjunctiva: normal. 19:16 Skin: injury, contusion(s), that are superficial, of the right eye and right side of forehead. 19:42 ECG was reviewed by the Attending Physician. kb Vital Signs: 18:54 BP 130 / 86; Pulse 93; Resp 16; Temp 98.3; Pulse Ox 96% on R/A; Weight 80.29 kg; Height hb 5 ft. 4 in. (162.56 cm); Pain 4/10; 19:45 BP 134 / 81; Pulse 84; Resp 20; Pulse Ox 92% ; Pain 4/10; jj7 20:48 BP 131 / 78; Pulse 76; Resp 17; Pulse Ox 99% ; Pain 2/10; jj7 18:54 Body Mass Index 30.38 (80.29 kg, 162.56 cm) hb [place] Coma Score: 19:11 Eye Response: spontaneous(4). Verbal Response: oriented(5). Motor Response: obeys jj7 commands(6). Total: 15. Trauma Score (Adult): 19:11 Eye Response: spontaneous(1); Verbal Response: oriented(1); Motor Response: obeys jj7 commands(2); Systolic BP: > 89 mm Hg(4); Respiratory Rate: 10 to 29 per min(4); [place] Score: 15; Trauma Score: 12 MDM: 18:53 Patient medically screened. 19:15 Data reviewed: vital signs, nurses notes. Data interpreted: Pulse oximetry: on room air kb is 96 %. Interpretation: normal. 20:32 Counseling: I had a detailed discussion with the patient and/or guardian regarding: the kb historical points, exam findings, and any diagnostic results supporting the discharge/admit diagnosis, lab results, radiology results, the need for outpatient follow up, a family practitioner, to return to the emergency department if symptoms worsen or persist or if there are any questions or concerns that arise at home. 20:42 Physician consultation: Oniel Ritter MD was contacted at 20:42, regarding consult, patient's condition, and will see patient in office. 05/04 18:58 Order name: Basic Metabolic Panel; Complete Time: 20:25 kb 05/04 18:58 Order name: CBC with Diff; Complete Time: 20:10 kb 05/04 18:58 Order name: CPK; Complete Time: 20:25 kb 05/04 18:58 Order name: Hepatic Function; Complete Time: 20:25 kb 05/04 18:58 Order name: Magnesium; Complete Time: 20:25 kb 05/04 18:58 Order name: Protime (+inr); Complete Time: 20:10 kb 05/04 18:58 Order name: Ptt, Activated; Complete Time: 20:10 kb 05/04 18:58 Order name: Troponin High Sensitivity; Complete Time: 20:25 kb 05/04 18:58 Order name: CT Head Brain wo Cont kb 05/04 18:58 Order name: Cardiac monitoring; Complete Time: 19:39 kb 05/04 18:58 Order name: EKG - Nurse/Tech; Complete Time: 19:39 kb 05/04 18:58 Order name: CT Facial Bones W/O Con; Complete Time: 20:25 kb 05/04 19:02 Order name: Head Brain Wo Cont; Complete Time: 20:21 EDMS 05/04 18:58 Order name: IV Saline Lock; Complete Time: 19:45 kb 05/04 18:58 Order name: Labs collected and sent; Complete Time: 19:45 kb 05/04 18:58 Order name: NPO; Complete Time: 19:45 kb 05/04 18:58 Order name: O2 Per Protocol; Complete Time: 19:45 kb 05/04 18:58 Order name: O2 Sat Monitoring; Complete Time: 19:45 kb 05/04 18:58 Order name: Urine Dipstick-Ancillary (obtain specimen) kb EC:42 Rate is 84 beats/min. Rhythm is regular. QRS [place] is Normal. [place] interval is normal at kb 176 msec. QRS interval is normal at 84 msec. QT interval is normal at 413 msec. Administered Medications: No medications were administered Disposition: 22:05 Co-signature as Attending Physician, Pramod Olivia DO I was immediately available on-site ms3 in the Emergency Department for consultation in the care of the patient. . Disposition Summary: 05/04/22 20:40 Discharge Ordered Location: Home kb Condition: Stable kb Diagnosis - Fall on same level from slipping, tripping and stumbling without subsequent kb striking against object - Contusion of eyelid and periocular area kb - Unspecified injury of head, initial encounter kb Followup: kb - With: Emergency Department - When: As needed - Reason: Worsening of condition Followup: kb - With: Private Physician - When: 2 - 3 days - Reason: Recheck today's complaints, Continuance of care, Re-evaluation by your physician Discharge Instructions: - Discharge Summary Sheet kb - Hematoma, [id number] kb - Head Injury, Adult, [id number] kb Forms: - Medication Reconciliation Form kb - Thank You Letter kb - Antibiotic Education kb - Prescription Opioid Use kb Signatures: Dispatcher [employer] EDMS Radha Alves, DETENTION DEPUTY-C DETENTION DEPUTY-Ckb Alina Juarez, RN RN Pramod Gaffney DO DO ms3 Analilia Barrientos RN RN jj7
--- NOTE | 2022-05-04 20:40 | ER ---
Nurse's Notes [facility] Name: Zari Raphael Age: 72 yrs Sex: Female : 1950 Arrival Date: 05/04/2022 Time: 18:34 Bed 20 Private MD: Diagnosis: Fall on same level from slipping, tripping and stumbling without subsequent striking against object;Contusion of eyelid and periocular area;Unspecified injury of head, initial encounter Presentation: 05/04 18:54 Chief complaint: Right periorbital swelling and bruising after fall from standing last hb night. Coronavirus screen: At this time, the client does not indicate any symptoms associated with coronavirus-19. Ebola Screen: No symptoms or risks identified at this time. Initial Sepsis Screen: Does the patient meet any 2 criteria? No. Patient's initial sepsis screen is negative. Does the patient have a suspected source of infection? No. Patient's initial sepsis screen is negative. Risk Assessment: Do you want to hurt yourself or someone else? Patient reports no desire to harm self or others. Onset of symptoms was May 03, 2022. 18:54 Method Of Arrival: Ambulatory hb 18:54 Acuity: TYLER 3 hb Triage Assessment: 19:11 General: Appears in no apparent distress. comfortable, Behavior is calm, cooperative, jj7 appropriate for age. Historical: - Allergies: 18:56 No Known Allergies; hb - Immunization history:: Client reports receiving the 2nd dose of the Covid vaccine, Flu vaccine is up to date. - Social history:: Smoking status: Patient denies any tobacco usage or history of. Patient/guardian denies using. Screenin:12 [facility] ED Fall Risk Assessment (Adult) History of falling in the last 3 months, jj7 including since admission Yes- single mechanical fall (1 pt) Confusion or Disorientation No (0 pts) Intoxicated or Sedated No (0 pts) Impaired Gait Mobility Assist Device Used No (0 pt) Altered Elimination No (0 pt) Score/Fall Risk Level 0 - 2 = Low Risk Maintained a safe environment, Educated pt \T\ family on fall prevention, incl call for assistance when getting out of bed. Abuse screen: Denies threats or abuse. Nutritional screening: No deficits noted. Tuberculosis screening: No symptoms or risk factors identified. Fall Risk Fall in past 12 months (25 points). No secondary diagnosis (0 pts). No IV (0 pts). Ambulatory Aid- None/Bed Rest/Nurse Assist (0 pts). Gait- Normal/Bed Rest/Wheelchair (0 pts) Mental Status- Oriented to own ability (0 pts). Total [place] Fall Scale indicates Low Risk Score (25-44 pts). Fall prevention measures have been instituted. Placed close to Nursing Station Family Present and informed to notify staff if they need to leave bedside As available Patient and Family Educated on Fall Prevention Program and strategies. Primary Survey: 19:11 NO uncontrolled hemorrhage observed. A: The client is awake and alert. The airway is jj7 patent. The client is alert. Airway: patent. Breathing/Chest: Spontaneous respiratory effort, equal unlabored respirations, breath sounds clear bilaterally, regular pattern, symmetrical chest rise and fall. Circulation: No external hemorrhage present. Regular and strong central pulse, skin warm/dry/normal color. Disability Client is alert. Exposure/Environment: A warming method has been applied: A warm blanket has been provided to the patient. 20:40 Reassessment Alertness and Airway: Awake and alert. The airway is patent. Breathing: jj7 Spontaneous respiratory effort, equal unlabored respirations, breath sounds clear bilaterally, regular pattern with symmetrical chest rise and fall. Circulation: No external hemorrhage noted. Regular and strong central pulse, skin warm/dry/normal color. Disability: Alert. Assessment: 19:11 Reassessment: ASSUMED CARE OF PT. PT SITTING IN BED. NO DISTRESS NOTED. LARGE BRUISING jj7 AND SWELLING TO RIGHT EYE AREA. VS STABLE. CALL CHO IN REACH. AT BEDSIDE. 19:12 Pain: Complains of pain in right eye Pain currently is 4 out of 10 on a pain scale. jj7 Quality of pain is described as tender. EENT: Lid(s) SWELLING, DISCOLORED AND BRUISING TO RIGHT EYES AREA. Reports. Vital Signs: 18:54 BP 130 / 86; Pulse 93; Resp 16; Temp 98.3; Pulse Ox 96% on R/A; Weight 80.29 kg; Height hb 5 ft. 4 in. (162.56 cm); Pain 4/10; 19:45 BP 134 / 81; Pulse 84; Resp 20; Pulse Ox 92% ; Pain 4/10; jj7 20:48 BP 131 / 78; Pulse 76; Resp 17; Pulse Ox 99% ; Pain 2/10; jj7 18:54 Body Mass Index 30.38 (80.29 kg, 162.56 cm) hb [place] Coma Score: 19:11 Eye Response: spontaneous(4). Verbal Response: oriented(5). Motor Response: obeys jj7 commands(6). Total: 15. Trauma Score (Adult): 19:11 Eye Response: spontaneous(1); Verbal Response: oriented(1); Motor Response: obeys jj7 commands(2); Systolic BP: > 89 mm Hg(4); Respiratory Rate: 10 to 29 per min(4); [place]leen Score: 15; Trauma Score: 12 ED Course: 18:34 Patient arrived in ED. as 18:37 Radha Alves FNP-C is PHCP. kb 18:37 Pramod Olivia DO is Attending Physician. kb 18:56 Triage completed. hb 18:56 Arm band placed on. hb 19:11 Patient maintains SpO2 saturation greater than 95% on room air. jj7 19:11 No provider procedures requiring assistance completed. jj7 19:11 Thermoregulation: warm blanket given to patient. jj7 19:12 Analilia Barrientos, RN is Primary Nurse. jj7 19:12 Patient has correct armband on for positive identification. Placed in gown. Bed in low jj7 position. Call light in reach. Adult w/ patient. 19:42 Inserted saline lock: 20 gauge in right antecubital area, using aseptic technique. jj7 Blood collected. 19:45 Basic Metabolic Panel Sent. jj7 19:45 CBC with Diff Sent. jj7 19:45 CPK Sent. jj7 19:45 Hepatic Function Sent. jj7 19:45 Magnesium Sent. jj7 19:45 Protime (+inr) Sent. jj7 19:45 Ptt, Activated Sent. jj7 20:10 Head Brain Wo Cont In Process Unspecified. EDMS 20:10 CT Facial Bones W/O Con In Process Unspecified. EDMS 20:48 IV discontinued, intact, bleeding controlled, No redness/swelling at site. Pressure jj7 dressing applied. Administered Medications: No medications were administered Medication: 19:12 VIS not applicable for this client. jj7 Intake: 19:11 PO: 0ml; Total: 0ml. jj7 Outcome: 20:40 Discharge ordered by MD. canales 20:43 PT UP FOR DISCHARGE GETTING READY AND CHANGEDPatient's length of stay extended due to jj7 20:48 Discharged to home ambulatory, with significant other. jj7 20:48 Condition: good 20:48 Discharge instructions given to patient, family, Instructed on discharge instructions, follow up and referral plans. Demonstrated understanding of instructions, follow-up care. 20:55 Patient left the ED. jj7 Signatures: Dispatcher [employer] EDMS Radha Alves, ADDICTIONS RECOVERY SPECIALIST-C ADDICTIONS RECOVERY SPECIALIST-Lila Calderon Heather, RN RN Analilia Langston RN RN jj7 Corrections: (The following items were deleted from the chart) 18:57 18:54 BP 130 / 86; Pulse 93bpm; Resp 16bpm; Pulse Ox 96% RA; Temp 98.3F; hb hb 18:57 18:54 Acuity: TYLER 3 hb hb 20:20 18:54 Acuity: TYLER 4 hb hb
[2022-05-04 21:00] VITALS: TEMP 98.3
[2022-05-04 21:03] VITALS: BP 131/78; O2SAT 99
--- NOTE | 2022-05-06 14:01 | EKG ---
Test Date: 2022-05-04 Test Time: 19:34:56 [employer] Executive: LL MEASUREMENT RESULTS: Intervals: Rate: 84 NH: 176 QRSD: 84 QT: 350 QTc: 413 [place]: P: 15 NH: 176 QRS: -17 T: 54 INTERPRETIVE STATEMENTS: Normal sinus rhythm Minimal voltage criteria for LVH, may be normal variant Cannot rule out Anterior infarct, age undetermined Abnormal ECG Compared to ECG 03/14/2013 07:21:32 Left ventricular hypertrophy now present Myocardial infarct finding now present T-wave abnormality no longer present Electronically Signed On 05-06-22 13:59:46 HVAC PROJECT MANAGER by Micah Dick
== END 2022-05-04 20:55 | disposition home or self-care (01) ==
LOC: ER 18:30
DX: S00.11XA Contusion of right eyelid and periocular area, initial encounter (principal); S09.90XA Unspecified injury of head, initial encounter; W01.0XXA Fall on same level from slipping, tripping and stumbling without subsequent striking against object, initial encounter
CPT/HCPCS: 36415; 70450; 70486; 76377; 80048; 80076; 82550; 83735; 84484; 85025; 85610; 85730; 93005; 99284

== ENCOUNTER 2022-11-06 12:30 | Day surgery (SDC) | payer OTHER, MEDICARE ==
--- NOTE | 2022-11-05 14:48 | RAD REPORT ---
EXAM DESCRIPTION: RAD - Chest Pa And Lat (2 Views) - 11/05/2022 2:36 pm CLINICAL HISTORY: pre procedure Chest pain. TECHNIQUE: PA and lateral views of the chest were obtained. FINDINGS: The lungs are hyperexpanded compatible with COPD. The heart is upper limit of normal in si ze. No fracture or aggressive bony process. IMPRESSION: COPD without acute process identified. The USPSTF recommends annual screening for lung cancer with low-dose CT (LDCT) in adults aged 50 to 80 years who have a 20 pack-year smoking history and currently smoke or have quit within the past 15 years.
[2022-11-05 15:25] LABS: Absolute Lymphocytes (CBC) 1.6 K/uL (0.7-4.9); Hematocrit 43.1 % (36.0-45.0); Lymphocytes % 26.9 % (15.3-44.8)
[2022-11-05 15:27] LABS: Potassium 3.7 mEq/L (3.5-5.1)
[2022-11-05 17:43] LABS: Protime INR 0.79
[2022-11-06] MEDS ORDERED: NA CHLORIDE 0.9% 500 ML ONE (13:09)
[2022-11-06] MEDS ORDERED: HEPA 1000U/500MLS 2,000 UNIT/1,000 ML BAG IV ONE (14:33)
[2022-11-06] MEDS ORDERED: LIDOCAINE 1% 20 ML MDV ONE (14:33)
[2022-11-06] MEDS ORDERED: VERAPAMIL HCL 10 MG/4 ML VIAL IV ONE (14:38)
[2022-11-06] MEDS ORDERED: HEPARIN 5000 UNIT/ML 1 ML VIAL ONE (14:38)
[2022-11-06] MEDS ORDERED: MIDAZOLAM HCL 2 MG/2 ML INJ ONE ×2 (14:38→15:43)
[2022-11-06] MEDS ORDERED: HEPARIN 10,000 UNIT/10 ML VIAL IV ONE (14:38)
[2022-11-06] MEDS ORDERED: FENTANYL CITR 100 MCG/2 ML ONE (14:38)
[2022-11-06] MEDS ORDERED: ASPIRIN 325 MG TAB ONE (14:58)
[2022-11-06] MEDS ORDERED: CLOPIDOGREL 75 MG TABLET ONE (14:58)
[2022-11-06] MEDS ORDERED: TICAGRELOR 90 MG TABLET PO ONE (14:59)
[2022-11-06] MEDS ORDERED: ONDANSETRON 4 MG/2 ML VIAL ONE (15:38)
[2022-11-06] MEDS ORDERED: FAMOTIDINE 20 MG TAB PO ONE (16:00)
[2022-11-06 18:53] VITALS: BP 149/76; O2SAT 98
--- NOTE | 2022-11-06 21:32 | OP ---
Date of Procedure: 11/06/2022 Surgeon: DIMITRIOS LAWSON Procedures Performed: 1.Selective coronary angiogram. 2.Left heart catheterization. 3.PCI of severe [id number] left circumflex stenosis using 2.5 x 12 mm Synergy drug-eluting stent. Indication: Chest pain with abnormal stress test. Access: Right radial artery 6-Portuguese closed with TR band. Complications: None. Estimated Blood Loss: Bleeding less than 20 mL. Description Of Procedure: After risks, benefits, and alternatives were explained, the patient agreed to procedure and signed informed consent. The patient was brought into the cardiac catheterization laboratory and prepped and draped in usual sterile fashion. Then I accessed right radial artery usin g pediatric micropuncture, placed 6-Portuguese Slender sheath and took 5-Portuguese [place] 4 catheter into the aortic root and engaged left main and the right coronary artery, took standard views and the cathete r was pushed over the wire into the LV, measured the LVEDP and pullback did not record any gradient a nd then I gave systemic heparin to assure ACT level above 250. I gave 300 mg of Plavix and aspirin 3 25 mg and then I took the XB 3.5 left guide into the aortic root over a J-wire, engaged left main, an d took short Runthrough wire into the left main then left circumflex and placed it distally crossing the stenosis. Then I used a 2.5 x 8 mm compliant balloon to high pressure and the lesion expanded ve ry well and then I placed 2.5 x 12 mm stent with good expansion and 0% residual stenosis and SHEREEN-3 f low. No complication. Wire was removed. Catheter was removed. Sheath was removed, placed TR band with good hemostasis. Findings: 1.Left main: Large, normal. 2.LAD: Diffuse 20% to 30% stenosis in the proximal mid segment and the distal segment with luminal regularities. Diagonal branches with luminal irregularities. 3.Left circumflex: Proximal 30% and OM1 branch is large and normal. Then, the circumflex itself is a large vessel, supplies the inferior wall and has mid 99% stenosis, status post successful PCI as a jaimie and it is a codominant circulation. 4.RCA: It is a codominant medium size vessel with proximal 30% mid RCA stent that is patent. Dista l to the stent, there is 50% stenosis and then at the bifurcation, there is 80% stenosis and there ar e luminal irregularities in the PLB and PDA. 5.LVEDP borderline at 13 mmHg. Conclusion: 1.Severe left circumflex stenosis and distal right coronary artery stenosis status post successful p ercutaneous coronary intervention of the left circumflex. 2.Moderate coronary artery disease elsewhere. 3.Borderline elevated left ventricular end-diastolic pressure. Plan: 1.Aspirin, Plavix, and statin. 2.Staged PCI of distal RCA in 4 to 6 weeks. SR/MODL Voice ID: [id number] Report ID: [id number]
== END 2022-11-06 19:13 | disposition home or self-care (01) ==
LOC: CCL 12:30
PROVIDERS: ATTEND Internal Medicine
DX: I25.10 Atherosclerotic heart disease of native coronary artery without angina pectoris (principal); I65.23 Occlusion and stenosis of bilateral carotid arteries; I10 Essential (primary) hypertension; E78.2 Mixed hyperlipidemia; E11.9 Type 2 diabetes mellitus without complications; Z01.810 Encounter for preprocedural cardiovascular examination; Z79.02 Long term (current) use of antithrombotics/antiplatelets; Z79.82 Long term (current) use of aspirin; Z79.84 Long term (current) use of oral hypoglycemic drugs; Z79.899 Other long term (current) drug therapy
CPT/HCPCS: 85025; 80048; 36415; 85610; 85347 ×2; 85730; 71046; 93458; 76937; C1893; Q9967; C1725; C9600; J1644; J2001; J2250 ×2; J3010; J2405; J7040

== ENCOUNTER 2022-12-25 07:00 | Day surgery (SDC) | payer OTHER, MEDICARE ==
[2022-12-23 13:38] LABS: Absolute Lymphocytes (CBC) 1.9 K/uL (0.7-4.9); Hematocrit 45.8 % (36.0-45.0); Lymphocytes % 32.8 % (15.3-44.8); MCV 88.1 fL (80-100); MPV 7.5 fL (7.6-11.3); Platelets 248 thou/uL (152-406)
[2022-12-23 13:43] LABS: Protime INR 1.01
[2022-12-23 13:58] LABS: Potassium 4.2 mEq/L (3.5-5.1)
--- NOTE | 2022-12-24 14:13 | EKG ---
Test Date: 2022-12-23 Test Time: 13:16:41 Utilization Engineer: MABLE MEASUREMENT RESULTS: Intervals: Rate: 61 LA: 206 QRSD: 82 QT: 452 QTc: 455 [place]: P: 47 LA: 206 QRS: 44 T: 65 INTERPRETIVE STATEMENTS: Normal sinus rhythm Nonspecific T wave abnormality Abnormal ECG Compared to ECG 05/04/2022 19:34:56 T-wave abnormality now present Left ventricular hypertrophy no longer present Myocardial infarct finding no longer present Electronically Signed On 12-24-22 14:10:54 CDT by Micah Dick
[2022-12-25] MEDS ORDERED: HEPA 1000U/500MLS 2,000 UNIT/1,000 ML BAG IV ONE (07:09)
[2022-12-25] MEDS ORDERED: VERAPAMIL HCL 10 MG/4 ML VIAL IV ONE (07:10)
[2022-12-25] MEDS ORDERED: FENTANYL CITR 100 MCG/2 ML ONE (07:10)
[2022-12-25] MEDS ORDERED: HEPARIN 5000 UNIT/ML 1 ML VIAL ONE (07:10)
[2022-12-25] MEDS ORDERED: MIDAZOLAM HCL 2 MG/2 ML INJ ONE (07:10)
[2022-12-25] MEDS ORDERED: ATROPINE SULF 1 MG/10 ML SYR IV ONE (07:11)
[2022-12-25] MEDS ORDERED: CLOPIDOGREL 75 MG TABLET ONE (07:11)
[2022-12-25] MEDS ORDERED: TICAGRELOR 90 MG TABLET PO ONE (07:11)
[2022-12-25] MEDS ORDERED: ASPIRIN 325 MG TAB ONE (07:11)
[2022-12-25] MEDS ORDERED: HEPARIN 10,000 UNIT/10 ML VIAL IV ONE (07:11)
[2022-12-25] MEDS ORDERED: NITROGLYCERIN 100 MCG/ML SYR (for cath lab use only) IV ONE (07:11)
[2022-12-25] MEDS ORDERED: LIDOCAINE 1% 20 ML MDV ONE (07:12)
[2022-12-25] MEDS ORDERED: NITROGLYCERIN/D5W 25 MG/250 ML BTL IV ONE (07:12)
[2022-12-25] MEDS ORDERED: NA CHLORIDE 0.9% 500 ML ONE (07:33)
[2022-12-25] MEDS ORDERED: HEPA 1000U/500MLS 1,000 UNIT/500 ML BAG IV ONE (09:07)
[2022-12-25 09:18] VITALS: TEMP 98
[2022-12-25] MEDS ORDERED: ACETAMINOPHEN 325 MG TABLET ONE (12:03)
[2022-12-25 13:23] VITALS: O2SAT 97
[2022-12-25 13:24] VITALS: BP 166/68
--- NOTE | 2022-12-25 15:33 | OP ---
Date of Procedure: 12/25/2022 Surgeon: DIMITRIOS LAWSON Procedures Performed: 1.Selective coronary angiogram. 2.Left heart catheterization. 3.PCI of severe distal RCA stenosis, used 2.75 x 12 mm Synergy drug-eluting stent. Indication: Coronary artery disease, known to be severe in the distal RCA with chest pain on activit ies. Access: Right radial artery 6-Latvian closed with TR band. Complications: None. Bleeding: Less than 20 mL. Description Of Procedure: After risks, benefits, alternatives were explained, the patient agreed to the procedure and signed informed consent. The patient was brought into the cardiac catheterization laboratory, prepped and draped in the usual sterile fashion. Then, I accessed right radial artery us ing pediatric micropuncture kit, placed 6-Latv[place] Slender sheath, and took a 5-Latvian [place] 4.0 cathet er into the aortic root, engaged the left main and took standard views, and then exchanged for a 6-Fr ench JR4 guide and engaged the RCA, took standard views, and then gave systemic heparin to assure ACT level above 250, and the patient is already on aspirin and Plavix. I took Run-Through wire into the RCA, placed it distally, and using a 2.5 balloon to high pressure, the lesion of the distal RCA was pre-dilated successfully. Then, I placed a 2.75 x 12 mm Synergy drug-eluting stent with excellent re sults. Then, I removed the wire and the guide and the sheath, and placed TR band with good hemostasi s. Also during the procedure, the JR4 catheter was pushed over the wire into the LV, measured the LV EDP and pullback did not record any gradient. Findings: 1.Left main; normal. 2.LAD; proximal to mid diffuse 30% to 40% stenosis and then becomes normal. Diagonal branches with luminal irregularity. 3.Left circumflex; large vessel, proximal 30%, and then after takeoff of the OM1 branch, there is a 60% ostial stenosis and then patent stent. 4.RCA; proximal 30%. Mid RCA has patent stent. Distal stent, there is focal 40% to 50% stenosis an d distal RCA is 80% stenosed, status post successful PCI as above. 5.LVEDP elevated slightly at 50 mmHg. Conclusion: 1.Severe distal RCA stenosis, status post successful PCI as above. 2.Moderate coronary artery disease elsewhere. 3.Slightly elevated LVEDP. Plan: Aspirin, Plavix, high-dose statin. SR/MODL Voice ID: [id number] Report ID: [id number]
== END 2022-12-25 14:00 | disposition home or self-care (01) ==
LOC: CCL 07:00
PROVIDERS: ATTEND Internal Medicine
DX: I25.119 Atherosclerotic heart disease of native coronary artery with unspecified angina pectoris (principal); I10 Essential (primary) hypertension; E78.5 Hyperlipidemia, unspecified; E11.9 Type 2 diabetes mellitus without complications; Z95.5 Presence of coronary angioplasty implant and graft; Z79.84 Long term (current) use of oral hypoglycemic drugs; Z91.040 Latex allergy status
CPT/HCPCS: 93005; 85025; 80048; 36415; 85610; 82947; 85347; 85730; 93458; 76937; C1893; Q9966; C1725; C9600; J1644; J2001; J2250; J3010; J7040; J0461